=== PATIENT | male | born 1960 | race Caucasian/White ===

== ENCOUNTER 2016-06-02 08:27 | Day surgery (SDC) | payer OTHER ==
[~2016-06-02] VITALS: Ht 175.3 cm; Wt 110.2 kg
[~2016-06-02 08:27] MED LIST: ALBU8.5H2 INHALATION; ASPI-973 PO; ATOR80TA PO; CLOP75TA28 PO; ERGO2000 PO; FEXO180T85 PO; FLUT12AE4 IH; LISI40TA PO; Lactated Ringer's 1,000 ML IV ONE; METO25TA6 PO; MOME17SP NS; NITR0.4T SL; OMEP20CA11 PO
[2016-06-02] MEDS ORDERED: Propofol 10,000 mCg/mL 20 mL Inj ONE (08:28)
[2016-06-02 08:59] VITALS: BP 152/99; PULSE 98; RESP 14; O2SAT 94
--- NOTE | 2016-06-02 09:23 | PCM.HPANE ---
Patient Data Date of Service: Jun 02, 2016 Surgeon Admitting Provider: Attending Provider:John Gan MD Primary Care Physician:Rachna Quintero MD Other Provider:Carole Troy Anesthesia Reason for Visit Polyp Of Colon/Gerd Ht/WT & BMI Height (Feet): 5 Height (Inches): 9 Weight (Kilograms): 110.22 Body Mass Index 35.00 Allergies Coded Allergies: No Known Drug Allergies (Verified Allergy, Unknown, 06/01/16) Past Anesthesia History Anesthesia History: Denies:: Abnormal Airway, Anesthesia Reactions, Difficult Intubation, Fam Anesthesia Reaction, Fam Malignant Hypertherm, Malignant Hyperthermia Diabetes History Hx Diabetes?: No MRSA MRSA: No Medications Blood Thinner: Aspirin, Plavix Last Dose Blood Thinner: Jun 01, 2016 Hypertension Medication: Yes Home Meds Incl Beta Karol: Yes Date Beta Karol Taken: Jun 01, 2016 Time Beta Karol Taken: 1000 Reported Medications Omeprazole 20 Mg Capsule.dr20 Mg PO DAILY Ref 0 06/01/16 Nitroglycerin SL (Nitrostat)0.4 Mg Tab.subl0.4 Mg SL Q5MIN PRN For Chest Pain # 1 BOTTLE 06/01/16 Mometasone Furoate (Nasonex)17 Gm Sumner.[email or web address] Sumner NS DAILY #1 PKG Ref 0 06/01/16 Metoprolol Tartrate 25 Mg Kxyxpp71 Mg PO BID 30 Days Ref 0 06/01/16 Lisinopril 40 Mg Zxxpni80 Mg PO DAILY 30 Days Ref 0 06/01/16 Ergocalciferol (Vitamin D2) (Vitamin D2)2,000 Unit Mgkucr08,000 Unit PO WEEKLY 06/01/16 Clopidogrel 75 Mg Cgbfwb24 Mg PO DAILY Ref 0 06/01/16 Atorvastatin (Lipitor)80 Mg Usdjgw14 Mg PO DAILY Ref 0 06/01/16 Aspirin 81 Mg Xgupmn86 Mg PO DAILY Ref 0 06/01/16 Fexofenadine (Blanca Allergy)180 Mg Hpszfz652 Mg PO DAILY Ref 0 06/01/16 Albuterol HFA (Proair HFA)8.5 Gm Hfa.aer.ad2 Puffs INHALATION Q4H #1 INHALER 06/01/16 Fluticasone/Salmeterol (Advair Hfa 115-21 Mcg Inhaler)12 Gm Hfa.aer.ad2 Puff IH BID #1 INHALER Ref 0 06/01/16 History History of ENT Problems?: No HEENT History: Positive for:: Hearing Problem Denies:: Abnormal Airway Cataracts Difficult Intubation Dysphagia Glaucoma Sinus Problem TMJ Denture Type: None Teeth Condition: Within Normal Limits Missing Teeth Hx of Heart Problems?: Yes Cardiovascular History: Positive for:: Chest Pain Coronary Artery Disease Hypertension Valvular Heart Disease Hx of Respiratory Problem?: Yes Respiratory History: Positive for:: COPD (pollen allergies) Pneumonia Hx Neurologic Problems?: No Neurological History: Denies:: Alzheimer's Disease CVA Dementia Dizziness Headaches Multiple Sclerosis Parkinson's Disease Peripheral Neuropathy Seizures TIA Hx of GI Problems?: Yes Hx of Problems?: No Hx Musculoskeletal Problems?: No Musculoskeletal History: Positive for:: Joint Replacement Hx of Psycho/Social Problems?: No Hx Surgeries?: Yes Hx Any Other Health Problems?: Yes Hx Diabetes: No Hx Alcohol Use: Yes (rarely)Hx Substance Use: NoHave You Smoked inLast 12 mo: Yes Stop/Bang Treated for Sleep Apnea?: Yes Do You Have a CPAP Machine?: Yes CLAU Risk Assessment: High Risk, =/>3 Yes CLAU Category 2: Yes Risk Assessment Category Category 1A: Patient has history of documented sleep apnea, and HAS NOT received any narcotic, sedative or anesthesia administration during this stay. Category 1B: Patient has history of documented sleep apnea, and HAS received any narcotic , sedative or anesthesia administration during this stay Category 2: Patient has SUSPECTED Obstructive Sleep Apnea, and HAS received any narcotic , sedative or anesthesia administration during this stay. Category 3: Patient has SUSPECTED Obstructive Sleep Apnea and HAS NOT received narcotic, sedative or anesthesia administration during this stay. Category 4: Outpatient in Procedural Areas with known sleep apnea or who screen positive for High Risk via the STOP/BANG questionnaire. Exam Exam Vital Signs Vital Signs Date Time Temp Pulse Resp B/P Pulse Ox O2 Delivery O2 Flow Rate FiO2 06/02/16 08:59 98 14 152/99 94 Room Air General Appearance: Alert, Oriented X3, Cooperative, No Acute Distress HEENT/AIRWAY: MP 2 Lungs: Clear to Auscultation Heart: Exam Unremarkable, Regular Rate/Rhythm Plan Impression Patient chart reviewed, patient interviewed and anesthestic plan with risks, benefits, and alternatives discussed, and informed consent obtained. ASA Physical Status: ASA2 Mod Systemic Disease Anesthetic Plan: GA, TIVA Bene/Risks/Altern/Consents: Yes HP Complete Prior to Induction: Yes Shay Flores MD Jun 02, 2016 09:23
[2016-06-02] MEDS ORDERED: Lactated Ringer's 1,000 ML IV SCH (09:24)
[2016-06-02] MEDS ORDERED: Albuterol-Ipratropium 3 mL Inhalation Solution NEB PRN (09:25)
[2016-06-02] MEDS ORDERED: Ondansetron 2 mg/mL 2 mL Inj IVPUSH PRN (09:25)
[2016-06-02 10:02] VITALS: BP 112/79; PULSE 78; RESP 14; O2SAT 94
--- NOTE | 2016-06-02 10:08 | PCM.ANEP1 ---
Post Anesthesia Phase 1 PACU Phase 1 Assessment Date of Service: Jun 02, 2016 Vital Signs Vital Signs Date Time Temp Pulse Resp B/P Pulse Ox O2 Delivery O2 Flow Rate FiO2 06/02/16 10:02 36.2 78 14 112/79 94 Room Air 06/02/16 08:59 98 14 152/99 94 Room Air Anesthetic Administered: GA, TIVA Level of Alertness: Awake, talking TURK's with Equal Strength: Yes Pain: No Nausea or Vomiting: No Cardiovascular Function and Hy: Yes Oxygen Delivery: Room Air Lungs: Clear to Auscultation, Normal Air Movement Dermatome Level: Full Sensation Complications: No Follow up Care: No Patient Instructions Provided: Yes Shay Flores MD Jun 02, 2016 10:08
[2016-06-02 10:13] VITALS: BP 140/74; PULSE 82; RESP 14; O2SAT 94
[2016-06-02 10:23] VITALS: BP 141/87; PULSE 84; RESP 14; O2SAT 96
--- NOTE | 2016-06-02 10:31 | ENDO ---
[address] [address] ENDOSCOPY PROCEDURE PATIENT: GAIL MELENDREZ : 1960 MR#: [id number] ADMIT: 06/02/2016 JOB ID: [id number] DATE: 06/02/2016 PROCEDURE: Esophagogastroduodenoscopy. INDICATION: Gastroesophageal reflux. The patient's ASA classification, Mallampati score, and medications as per anesthesia note. INSTRUMENT USED: GIF H 180 J. PROCEDURE DETAILS: After informed consent was obtained, the patient was brought into the GI suite, where he was placed on oxygen via nasal cannula and monitored with continuous pulse oximeter, telemetry and blood pressure monitoring. A time-out was performed. Then, he was placed in the left lateral decubitus position and medications were administered for sedation. A bite block was placed. The standard EGD scope was inserted through the bite block and advanced under direct visualization to the second portion of the duodenum. FINDINGS: 1. Normal-appearing duodenal bulb, first and second portion. 2. Normal appearing pylorus. In the antrum there was a single erosion which was punctate. Biopsy was obtained as well as the remainder the antrum which had some mild erythema. 3. Mild erythema was also noted in the gastric body. Multiple random biopsies were obtained. 4. Retroflexed views in the gastric body revealed a normal-appearing cardia and fundus. 5. The GE junction was at 39 cm and was slightly irregular with a very short tongue of salmon-colored mucosa arising from the GE junction. Multiple biopsies were obtained. The remainder of the esophagus appeared unremarkable. IMPRESSION: 1. Erosion in antrum. 2. Gastritis. 3. Irregular gastroesophageal junction. RECOMMENDATIONS: 1. Await biopsy results. 2. Continue PPI daily. 3. Proceed to colonoscopy. COMPLICATIONS: None. ESTIMATED BLOOD LOSS: Less than 5 mL. PROCEDURE PERFORMED: Colonoscopy. INDICATION: The patient with a personal history of colon polyps. The patient has also had a history of left-sided partial colectomy secondary to diverticulitis in the past. Please see above for ASA classification, Mallampati score and medications. INSTRUMENT USED: PCF H 180 J PREPARATION QUALITY: Was fair. PROCEDURE DETAILS: After completion of the EGD examination, the patient was turned and a digital rectal examination with palpation of the prostate was performed, which was unremarkable. The colonoscope was then inserted into the rectum and advanced under direct visualization to the cecum, which was identified by the presence of the ileocecal valve and appendiceal orifice. Once the cecum was reached, the colonoscope was withdrawn back into the rectum as mucosa and lumen were examined. In the rectum, retroflexion was performed. Following retroflexion, remaining air in the rectum was suctioned, and procedure was completed. FINDINGS: 1. In the descending colon, there was an approximately 5 mm sessile polyp that was removed with cold snare. 2. Scattered diverticula were seen throughout the left side of the colon. 3. At 35 cm there was an anastomosis consistent with a colo-colo anastomosis. 4. Retroflexed views in the rectum revealed small internal hemorrhoids. IMPRESSION: 1. Descending colon polyp. 2. Left-sided diverticulosis. 3. Mosquero-colo anastomosis at 35 cm. 4. Internal hemorrhoids. RECOMMENDATIONS: 1. Repeat colonoscopy in five years. 2. Fiber-rich diet. 3. Followup in GI clinic. COMPLICATIONS: None. ESTIMATED BLOOD LOSS: Less than 5 mL.
--- NOTE | 2016-06-03 13:47 | PATH ---
SURGICAL PATHOLOGY Attending Physician:Rah Zamora CASE STATUS: Signed Out PATIENT NAME: GAIL MELENDREZ PID: [id number] : 1960 DATE COLLECTED:06/02/2016 17:41 SPECIMEN: 1: Stomach, Antrum, Biopsy 2: Gastric, Biopsy 3: Esophagus, Biopsy 4: Colon, Biopsy CLINICAL HISTORY: GERD, PHX OF POLYPS 1). ANTRUM BIOPSY 2). GASTRIC BIOPSY 3). DISTAL ESOPHAGUS BIOPSY 4). DESCENDING COLON POLYP FINAL DIAGNOSIS: 1.ANTRUM BIOPSY: FRAGMENT OF GASTRIC ANTRAL MUCOSA NEGATIVE FOR SIGNIFICANT INFLAMMATION. Negative for evidence of Helicobacter. Negative for intestinal metaplasia. Negative for dysplasia and malignancy. 2.GASTRIC BIOPSY: GASTRIC FUNDIC MUCOSA WITH SUPERFICIAL HYPEREMIA, BUT NEGATIVE FOR SIGNIFICANT INFLAMMATION. Negative for evidence of Helicobacter. Negative for intestinal metaplasia. Negative for dysplasia and malignancy. 3.DISTAL ESOPHAGUS BIOPSY: SQUAMOUS MUCOSA AND GASTRIC CARDIA-TYPE MUCOSA WITH CHRONIC INFLAMMATION AND REACTIVE EPITHELIAL CHANGES. Negative for specialized metaplasia of Hudson' s-type esophagus. Negative for dysplasia and malignancy. Scattered eosinophils present within squamous epithelium consistent with chronic reflux. 4.DESCENDING COLON POLYP: TUBULAR ADENOMA. ICD10 CODE D12.4 GROSS DESCRIPTION: The specimen is received in four formalin filled containers labeled with the patient's name. 1). The specimen is sublabeled "antrum" and consists of 2 portions of tissue which aggregate to 0.3 x 0.3 x 0.2 CM. The specimen is entirely submitted in cassette 1A. 2). The specimen is sublabeled "gastric" and consists of 2 portions of tissue which aggregate to 0.3 x 0.3 x 0.2 CM. The specimen is entirely submitted in cassette 2A. 3). The specimen is sublabeled "distal esophagus" and consists of a 0.2 x 0.2 x 0.2 CM portion of tissue which is entirely submitted in cassette 3A. 4). The specimen is sublabeled "descending colon polyp" and consists of a 0.3 x 0.2 x 0.2 CM portion of tissue which is entirely submitted in cassette 4A. 06/02/2016 DAC MICRO DESCRIPTION: See diagnosis. ICD-9 CODES: CPT CODES: 1: 37868 2: 86860 3: 30193 4: 68083 Electronically Signed Out Angel Bates MD [facility] [address], [place] [address] Technical component performed at [facility], [facility] [address], [place], [address]
== END 2016-06-02 23:59 | disposition home or self-care (01) ==
LOC: END 08:27
PROVIDERS: ATTEND Internal Medicine Gastroenterology
DX: Z12.11 Encounter for screening for malignant neoplasm of colon (principal); D12.4 Benign neoplasm of descending colon; K57.30 Diverticulosis of large intestine without perforation or abscess without bleeding; K64.8 Other hemorrhoids; K63.89 Other specified diseases of intestine; Z86.010 Personal history of colon polyps; K21.9 Gastro-esophageal reflux disease without esophagitis; K29.70 Gastritis, unspecified, without bleeding; I10 Essential (primary) hypertension; G47.30 Sleep apnea, unspecified; E78.00 Pure hypercholesterolemia, unspecified; I25.10 Atherosclerotic heart disease of native coronary artery without angina pectoris; I25.2 Old myocardial infarction; J30.9 Allergic rhinitis, unspecified; E66.01 Morbid (severe) obesity due to excess calories; Z68.38 Body mass index [BMI] 38.0-38.9, adult; Z95.5 Presence of coronary angioplasty implant and graft; Z79.82 Long term (current) use of aspirin; Z79.51 Long term (current) use of inhaled steroids
CPT/HCPCS: 43239; 45385; J7120